=== PATIENT | female | born 1980 | race Caucasian/White ===

== ENCOUNTER → 2018-08-11 | Day surgery (SDC) | payer BC ==
[~2018-08-11] MED LIST: Lidocaine 1% 20 ML MDV ONE
--- NOTE | 2018-08-11 11:43 | OR ---
DATE OF OPERATION: 08/11/2018 PREOPERATIVE DIAGNOSIS: 1. INSUFFICIENT ANTERIOR ACCESSORY GREATER SAPHENOUS VEIN. 2. PAINFUL VARICOSE VEINS. POSTOPERATIVE DIAGNOSIS: 1. INSUFFICIENT ANTERIOR ACCESSORY GREATER SAPHENOUS VEIN. 2. PAINFUL VARICOSE VEINS. SURGEON: Danial Bonds MD PROCEDURE: ENDOVENOUS ABLATION OF LEFT ANTERIOR ACCESSORY GREAT SAPHENOUS VEIN. ANESTHESIA: Local with tumescent. COMPLICATIONS: None. SPECIMEN: None. FINDINGS: Successful endovenous ablation of left anterior accessory great saphenous vein. INDICATIONS: The patient has had prior ablations of her GSV. 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 She elects to proceed with ablation. DESCRIPTION OF PROCEDURE: The patient was brought to the operating room suite. The insufficient anterior accessory vein was mapped via ultrasound and diagrammed on the overlying skin. The entire limb was prepped and draped in sterile fashion. The patient was placed in reverse Trendelenburg position. Local anesthesia was instilled over the access site. The vein was accessed in two separate spots, initially went just above the knee, but she has such a corkscrew vein distal to the mid thigh that we are unable to thread our catheter through this. We elected to then move more proximal into the mid thigh where we accessed the vein with a needle. Guidewire was introduced through the needle into the anterior accessory vein. Needle removed and small incision was made with an 11 blade scalpel. A 6-Japanese sheath catheter was then placed over the guidewire and positioned into the anterior accessory vein without problem. The guidewire was removed. The sheath was flushed. The radiofrequency probe was placed into the vein through the sheath and positioned approximately 2 cm distal to the saphenofemoral junction using ultrasound guidance. After probe position verified, tumescent anesthesia was infiltrated into the perivenous compartment along the length of the vein from the entry site to the junction until we achieved a nice halo effect around the vein. The patient was placed back in Trendelenburg position to exsanguinate the superficial venous system. Radiofrequency probe position was again confirmed via ultrasound and under direct external compression along the length of the heating element, radiofrequency energy was applied. The vein was segmentally ablated heating 7 cm segment and indexing the catheter forward to 6.5 cm until treatment length complete. Device temperature was maintained at 120 degrees with an initial level of 40 carrasquillo dropping to below 20 for each treatment. Total treatment time was 1 minute and 20 seconds with four radiofrequency cycles. Total tumescent was 200 mL. Repeat ultrasound confirmed successful treatment. Catheter and sheath were withdrawn. Hemostasis was achieved easily and the skin incision was closed with a dressing and compression wrap. Graduated compression stocking in the form of Kirby wrap was applied from the level of the foot to the thigh. The patient was stable in the recovery room. ANNMARIE/SHAENLL /[id number]
== END ==
LOC: CC.SDS 08:43
PROVIDERS: ATTEND Family Medicine
DX: I83.812 Varicose veins of left lower extremity with pain (principal); I87.2 Venous insufficiency (chronic) (peripheral)